=== PATIENT | male | born 1995 | race Caucasian/White ===

== ENCOUNTER 2021-09-16 17:04 | Emergency (ER) | payer BC, MEDICAID ==
[~2021-09-16] VITALS: Ht 172.7 cm; Wt 74.4 kg
[2021-09-16 17:12] VITALS: BP 136/74
--- NOTE | 2021-09-16 20:32 | NUR ---
PER MAYE MELARA PT CALLED AT 1730 AND AGAIN AT 1850 WITH NO ANSWER. PT LWBS
== END 2021-09-16 20:36 | disposition left against medical advice (07) ==
LOC: MED 17:04
DX: F41.9 Anxiety disorder, unspecified (principal); G47.00 Insomnia, unspecified; Z53.21 Procedure and treatment not carried out due to patient leaving prior to being seen by health care provider